=== PATIENT | male | born 1950 | race Caucasian/White ===

== ENCOUNTER 2016-12-27 01:33 | Inpatient (IN) | payer OTHER, MEDICARE, MEDICAID ==
[2016-12-27] VITALS (13 sets, daily range): BP systolic 116–137; BP diastolic 56–97; PULSE 88–124; RESP 18–30; TEMP 97.6–98.5; O2SAT 92–99
[~2016-12-27] VITALS: Ht 185.4 cm; Wt 91.2 kg
[~2016-12-27 01:33] MED LIST: ALPR0.5T3 PO; ASPI81TA82 PO; BP MED; DILT31TA PO; PRAD150C PO
[2016-12-27] MEDS ORDERED: MORPHINE SULFATE 4 MG/ML INJ IV PUSH ONE (02:15)
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
[2016-12-27] MEDS ORDERED: PRAD150C PO (03:00)
[2016-12-27] MEDS ORDERED: AMIO0.1T PO (03:00)
[2016-12-27] MEDS ORDERED: PRIM50TA5 PO (03:00)
[2016-12-27] MEDS ORDERED: HYDR-3133 PO (03:00)
[2016-12-27] MEDS ORDERED: AMBI5TAB PO (03:00)
[2016-12-27] MEDS ORDERED: GABA100C4 PO (03:00)
[2016-12-27] MEDS ORDERED: ALPR0.5T3 PO (03:00)
[2016-12-27] MEDS ORDERED: CHLORHEXIDINE GLUCONATE 2 % 1 PACK (2 CLOTHS) TOP PRN (03:15)
[2016-12-27] MEDS ORDERED: SODIUM CHLORIDE 0.9% FLUSH 10 ML FLUSH IV FLUSH PRN (03:15)
[2016-12-27] MEDS ORDERED: MISCELLANEOUS NURSING INFORMATION XX SCH (03:15)
[2016-12-27] MEDS ORDERED: MAGNESIUM HYDROXIDE SUSP 30 ML CUP PO PRN (03:15)
[2016-12-27] MEDS ORDERED: ENALAPRILAT 1.25 MG/ML VIAL IV PUSH PRN (03:15)
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
[2016-12-27] MEDS: SODIUM CHLOR 0.9% 1000 ML INJ 1,000 ML IV SCH ×2 (03:55→13:02)
[2016-12-27] MEDS: CHLORHEXIDINE GLUCONATE 2 % 1 PACK (2 CLOTHS) TOP SCH (04:00)
[2016-12-27] MEDS: MORPHINE SULFATE 4 MG/ML INJ IV PUSH PRN ×5 (05:10→19:14)
[2016-12-27] MEDS: PANTOPRAZOLE SODIUM 40 MG VIAL IVP SCH (06:00)
[2016-12-27 06:47] LABS: ANION GAP 10 MEQ/L (5-15); AST (GOT) 29 U/L (15-37); BICARBONATE 25.9 MEQ/L (21.0-32.0); BLOOD UREA NITROGEN 12 MG/DL (7-18); CHLORIDE 96 MEQ/L (98-107); GLOMERULAR FILTRATION RATE 86 ML/MIN (>89); POTASSIUM 3.5 MEQ/L (3.5-5.1); SODIUM (NA) 132 MEQ/L (136-145)
[2016-12-27 06:49] LABS: ALT (GPT) 32 U/L (12-78)
[2016-12-27 06:51] LABS: ALKALINE PHOSPHATASE 85 U/L (45-117); TOTAL BILIRUBIN ADULT 0.8 MG/DL (0.2-1.0)
[2016-12-27 07:10] LABS: AUTOMATED NEUTROPHIL # 7.5 TH/MM3 (1.8-7.7); BASOPHIL % 0.1 % (0.0-2.0); EOSINOPHIL % 0.1 % (0.0-4.0); HEMATOCRIT 38.6 % (39.0-51.0); HEMO FLAGS DIFF FINAL; LYMPH % 14.5 % (9.0-44.0); LYMPHOCYTE # 1.5 TH/MM3 (1.0-4.8); MEAN CELL VOLUME 93.9 FL (80.0-100.0); MEAN CORPUSCULAR HEMOGLOBIN 32.1 PG (27.0-34.0); MEAN CORPUSCULAR HGB CONC 34.2 % (32.0-36.0); MONO % 10.1 % (0.0-8.0); NEUT % 75.2 % (16.0-70.0); PLATELET COUNT 162 TH/MM3 (150-450); RED BLOOD COUNT 4.11 MIL/MM3 (4.50-5.90); RED CELL DISTRIBUTION WIDTH 13.5 % (11.6-17.2)
[2016-12-27] MEDS: DOCUSATE SODIUM 100 MG CAP PO SCH ×2 (08:36→20:27)
[2016-12-27] MEDS: ACETAMINOPHEN/HYDROcodone 325 MG/5 MG TAB PO PRN ×4 (08:45→20:28)
[2016-12-27] MEDS: METHOCARBAMOL 500 MG TAB PO SCH ×2 (10:00→17:46)
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
[2016-12-27] MEDS: LIDOCAINE HCL 5% PATCH T-DERMAL SCH (10:10)
[2016-12-27] MEDS ORDERED: AMIODARONE 200 MG TAB PO SCH (10:30)
[2016-12-27] MEDS ORDERED: PILL SPLITTER OTHER PRN (10:45)
[2016-12-27] MEDS: METOPROLOL TARTRATE 25 MG TAB PO SCH ×2 (12:00→20:26)
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
--- NOTE | 2016-12-27 12:33 | EKG ---
Date Performed: 12/27/2016 Time Performed: 01:40:14 PTAGE: 66 years EKG: ATRIAL FIBRILLATION WITH RAPID VENTRICULAR RESPONSE MARKED LEFT AXIS DEVIATION LEFT BUNDLE BRANCH BLOCK ABNORMAL ECG PREVIOUS TRACING : 09/12/2010 17.54 Since previous tracing, the left bundle branch block and le ft axis deviation are new. DOCTOR: Gianluca Coffey Interpretating Date/Time 12/27/2016 12:32:10
[2016-12-27] MEDS: GABAPENTIN 100 MG CAP PO SCH ×2 (13:00→17:46)
[2016-12-27] MEDS: PRIMIDONE 50 MG TAB PO SCH ×3 (13:00→20:26)
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
[2016-12-27] MEDS: REMOVE OLD LIDOCAINE PATCH T-DERMAL SCH (20:27)
[2016-12-27] MEDS: AMIODARONE 200 MG TAB PO SCH (20:59)
[2016-12-27] MEDS ORDERED: ICU - CALL ORDERING PHYSICIAN PRN (21:45)
[2016-12-27] MEDS ORDERED: ICU - POTASSIUM PHOSPHATE MONOBASIC 500 MG TAB PO PRN (21:45)
[2016-12-27] MEDS ORDERED: ICU - POTASSIUM PHOSPHATE 30 MMOL/NS 250 ML IV PRN ×2 (21:45)
[2016-12-27] MEDS ORDERED: ICU - MAGNESIUM OXIDE 400 MG TAB PO PRN (21:45)
[2016-12-27] MEDS ORDERED: ICU - D/C ICU ELECTROLYTE ORDERS PRN (21:45)
[2016-12-27] MEDS ORDERED: ICU - MAGNESIUM SULFATE 2 GM/NS 100 ML IV PRN ×2 (21:45)
[2016-12-27] MEDS ORDERED: POTASSIUM CHLORIDE 25 MEQ EFFERVESCENT TAB PO PRN (21:45)
[2016-12-27] MEDS ORDERED: ICU - POTASSIUM CHLORIDE/AQUEOUS SOLN 40 MEQ/100 ML IVPB IV PRN (21:45)
[2016-12-27] MEDS ORDERED: ICU - MAGNESIUM SULFATE 4 GM/NS 100 ML IV PRN ×2 (21:45)
[2016-12-27] MEDS ORDERED: ICU - SODIUM PHOSPHATE 30 MMOL/NS 250 ML IV PRN ×2 (21:45)
[2016-12-27] MEDS: ICU - POTASSIUM CHLORIDE/AQUEOUS SOLN 20 MEQ/100 ML IVPB IV PRN (21:51)
[2016-12-27] MEDS: ALPRAZolam 0.5 MG TAB PO PRN (21:55)
[2016-12-28] VITALS (15 sets, daily range): BP systolic 122–138; BP diastolic 77–89; PULSE 80–119; RESP 22–33; TEMP 97.9–99.2; O2SAT 90–96
[2016-12-28] MEDS: ICU - POTASSIUM CHLORIDE/AQUEOUS SOLN 20 MEQ/100 ML IVPB IV PRN (00:04)
[2016-12-28] MEDS: MORPHINE SULFATE 4 MG/ML INJ IV PUSH PRN ×4 (00:05→14:19)
[2016-12-28] MEDS: METHOCARBAMOL 500 MG TAB PO SCH ×3 (02:15→17:26)
[2016-12-28] MEDS: CHLORHEXIDINE GLUCONATE 2 % 1 PACK (2 CLOTHS) TOP SCH (03:33)
--- NOTE | 2016-12-28 03:57 | RADRPT ---
EXAM DATE/TIME: 12/28/2016 03:11 [facility] COMPARISON: CHEST SINGLE AP, December 27, 2016, 3:06. INDICATIONS : Chest pain. MEDICAL HISTORY : None. SURGICAL HISTORY : None. ENCOUNTER: Initial ACUITY: 2 days PAIN SCORE: 8/10 LOCATION: Right chest FINDINGS: The cardiac silhouette is enlarged in transverse diameter. The lungs are free of acute parenchymal op acity. No effusions are identified. The aortic knob is prominent with tortuosity of the descending th oracic aorta. CONCLUSION: 1. Cardiomegaly. No acute pulmonary disease. Viktor Dewitt MD on December 28, 2016 at 3:55 Board Certified Radiologist. This report was verified electronically.
[2016-12-28 03:59] LABS: AUTOMATED NEUTROPHIL # 7.9 TH/MM3 (1.8-7.7); BASOPHIL % 0.2 % (0.0-2.0); EOSINOPHIL # 0.2 TH/MM3 (0-0.4); EOSINOPHIL % 1.5 % (0.0-4.0); HEMO FLAGS DIFF FINAL; LYMPH % 16.1 % (9.0-44.0); LYMPHOCYTE # 1.8 TH/MM3 (1.0-4.8); MEAN CELL VOLUME 95.1 FL (80.0-100.0); MEAN CORPUSCULAR HEMOGLOBIN 32.8 PG (27.0-34.0); MEAN CORPUSCULAR HGB CONC 34.5 % (32.0-36.0); MONO % 9.9 % (0.0-8.0); NEUT % 72.3 % (16.0-70.0); PLATELET COUNT 163 TH/MM3 (150-450); RED BLOOD COUNT 4.31 MIL/MM3 (4.50-5.90); RED CELL DISTRIBUTION WIDTH 13.5 % (11.6-17.2); WHITE BLOOD COUNT 10.9 TH/MM3 (4.0-11.0)
[2016-12-28 04:22] LABS: ALT (GPT) 32 U/L (12-78); ANION GAP 6 MEQ/L (5-15); AST (GOT) 22 U/L (15-37); BICARBONATE 29.5 MEQ/L (21.0-32.0); BLOOD UREA NITROGEN 9 MG/DL (7-18); CHLORIDE 97 MEQ/L (98-107); GLOMERULAR FILTRATION RATE 94 ML/MIN (>89); MAGNESIUM 1.9 MG/DL (1.5-2.5); POTASSIUM 4.1 MEQ/L (3.5-5.1); SODIUM (NA) 132 MEQ/L (136-145)
[2016-12-28 04:24] LABS: ALKALINE PHOSPHATASE 87 U/L (45-117)
[2016-12-28] MEDS: ACETAMINOPHEN/HYDROcodone 325 MG/5 MG TAB PO PRN ×3 (04:33→20:07)
[2016-12-28] MEDS: PANTOPRAZOLE SODIUM 40 MG VIAL IVP SCH (05:34)
[2016-12-28] MEDS: LACTULOSE SYRUP 20 GM/30 ML CUP PO SCH (09:11)
[2016-12-28] MEDS: GABAPENTIN 100 MG CAP PO SCH ×3 (09:12→17:26)
[2016-12-28] MEDS: METOPROLOL TARTRATE 25 MG TAB PO SCH ×2 (09:12→20:07)
[2016-12-28] MEDS: DOCUSATE SODIUM 100 MG CAP PO SCH ×2 (09:12→20:07)
[2016-12-28] MEDS: LIDOCAINE HCL 5% PATCH T-DERMAL SCH (09:12)
[2016-12-28] MEDS: AMIODARONE 200 MG TAB PO SCH ×2 (09:12→20:07)
[2016-12-28] MEDS: PRIMIDONE 50 MG TAB PO SCH ×4 (09:12→20:06)
[2016-12-28] MEDS ORDERED: PNEUMOCOCCAL POLYVALENT INJ 25 MCG/0.5 ML SYR IM ONE (10:00)
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
--- NOTE | 2016-12-28 10:47 | PD.CARD.PN ---
Subjective Subjective Remarks no cv complaints Afib with RVR/aberrancy overnight asymptomatic Objective Medications Current Medications Medications (Trade) Dose Ordered Sig/Shelbie Route Start Time Stop Time Status Last Admin (NS Flush) 2 ml UNSCH PRN IV FLUSH 12/27/16 03:15 (Morphine Inj) 2 mg Q3H PRN IV PUSH 12/27/16 03:15 12/28/16 03:26 ([place] 5-325 Mg) 1 tab Q4H PRN PO 12/27/16 03:15 12/27/16 08:45 ([place] 5-325 Mg) 2 tab Q4H PRN PO 12/27/16 03:15 12/28/16 04:33 (Vasotec Inj) 1.25 mg Q8H PRN IV PUSH 12/27/16 03:15 (Zofran Inj) 4 mg Q6H PRN IV PUSH 12/27/16 03:15 (Protonix Inj) 40 mg Q24H IVP 12/27/16 06:00 12/28/16 05:34 (Colace) 100 mg BID PO 12/27/16 09:00 12/28/16 09:12 (Milk Of Magnesia Liq) 30 ml Q6H PRN PO 12/27/16 03:15 Miscellaneous Information 1 Q361D XX 12/27/16 03:15 (Chlorhexidine 2% Cloth) 3 pack Taper DAILY@04 TOP 12/27/16 04:00 12/23/17 03:59 (Chlorhexidine 2% Cloth) 3 pack UNSCH PRN TOP 12/27/16 03:15 (Robaxin) 500 mg Q8H PO 12/27/16 10:00 12/28/16 09:12 (Lidoderm 5% Patch.12 Hr) 1 patch DAILY T-DERMAL 12/27/16 09:15 12/28/16 09:12 (Lactulose Liq) 30 ml DAILY PO 12/28/16 09:00 12/28/16 09:11 Miscellaneous Information 1 Q24H T-DERMAL 12/27/16 21:00 12/27/16 20:27 (Xanax) 0.5 mg Q8H PRN PO 12/27/16 10:30 12/27/16 21:55 (Neurontin) 100 mg TID PO 12/27/16 13:00 12/28/16 09:12 (Mysoline) 100 mg QID PO 12/27/16 13:00 12/28/16 09:12 (Ambien) 5 mg HS PRN PO 12/27/16 21:00 (Pill Splitter) 1 ea UNSCH PRN OTHER 12/27/16 10:45 (Cordarone) 200 mg BID PO 12/27/16 21:00 12/28/16 09:12 (Lopressor) 25 mg Q12HR PO 12/27/16 12:00 12/28/16 09:12 Miscellaneous Information D/C ICU ELECTROLYTE ORDERS... UNSCH PRN .XX 12/27/16 21:45 Miscellaneous Information ICU - CALL ORDERING PHYSIC... UNSCH PRN .XX 12/27/16 21:45 Potassium Chloride 100 ml @ 25 mls/hr UNSCH PRN IV 12/27/16 21:45 (K-Lyte Cl Eff) 50 meq UNSCH PRN PO 12/27/16 21:45 Potassium Chloride 100 ml @ 50 mls/hr UNSCH PRN IV 12/27/16 21:45 12/28/16 00:04 Magnesium Sulfate 4 gm/Sodium Chloride 108 ml @ 54 mls/hr UNSCH PRN IV 12/27/16 21:45 Magnesium Sulfate 2 gm/Sodium Chloride 104 ml @ 52 mls/hr UNSCH PRN IV 12/27/16 21:45 (Mag-Ox) 800 mg UNSCH PRN PO 12/27/16 21:45 Sodium Phosphate 30 mmol/Sodium Chloride 260 ml @ 43.333 mls/ hr UNSCH PRN IV 12/27/16 21:45 (K-Phos) 2,000 mg UNSCH PRN PO 12/27/16 21:45 Potassium Phosphate 30 mmol/ Sodium Chloride 260 ml @ 43.333 mls/ hr UNSCH PRN IV 12/27/16 21:45 Vital Signs / I&O Vital Signs Date Time Temp Pulse Resp B/P (MAP) Pulse Ox O2 Delivery O2 Flow Rate FiO2 12/28/16 10:00 101 12/28/16 08:34 91 Nasal Cannula 3.00 12/28/16 08:00 98.3 101 28 127/81 (96) 91 12/28/16 08:00 101 12/28/16 07:00 92 Nasal Cannula 2.00 12/28/16 06:00 89 12/28/16 04:00 98.3 96 33 130/87 (101) 96 12/28/16 04:00 96 12/28/16 03:41 90 Nasal Cannula 3.00 12/28/16 02:00 84 12/28/16 00:00 97.9 80 30 122/77 (92) 96 12/28/16 00:00 80 12/27/16 22:00 88 12/27/16 20:00 98.5 96 21 116/56 (76) 98 12/27/16 20:00 96 12/27/16 19:00 93 Nasal Cannula 2.00 12/27/16 18:00 92 12/27/16 17:30 21 12/27/16 16:00 92 12/27/16 16:00 97.6 90 24 122/82 (95) 92 12/27/16 14:00 93 12/27/16 12:00 118 12/27/16 12:00 98.4 118 30 119/87 (98) 93 I/O 12/27/16 12/27/16 12/27/16 12/28/16 12/28/16 12/28/16 07:00 15:00 23:00 07:00 15:00 23:00 Intake Total 1973 ml 920 ml Output Total 0 ml 1100 ml 1400 ml Balance 0 ml 873 ml -480 ml Intake Oral 1200 ml 720 ml IV Total 773 ml 200 ml Output Urine Total 0 ml 1100 ml 1400 ml # Bowel Movements 0 0 Physical Exam GENERAL: Well-nourished, well-developed patient. SKIN: Warm and dry. HEAD: Normocephalic. EYES: No scleral icterus. No injection or drainage. NECK: Supple, trachea midline. No JVD or lymphadenopathy. CARDIOVASCULAR: Irr Irr without murmurs, gallops, or rubs. RESPIRATORY: Breath sounds equal bilaterally. No accessory muscle use. GASTROINTESTINAL: Abdomen soft, non-tender, nondistended. EXTREMITIES: No cyanosis, or edema. NEUROLOGICAL: Awake, alert, and oriented x 3. Non-focal. Laboratory Laboratory Tests Test 12/27/16 22:05 12/28/16 03:31 Magnesium Level 1.9 MG/DL 1.9 MG/DL White Blood Count 10.9 TH/MM3 Red Blood Count 4.31 MIL/MM3 Hemoglobin 14.1 GM/DL Hematocrit 41.0 % Mean Corpuscular Volume 95.1 FL Mean Corpuscular Hemoglobin 32.8 PG Mean Corpuscular Hemoglobin Concent 34.5 % Red Cell Distribution Width 13.5 % Platelet Count 163 TH/MM3 Mean Platelet Volume 6.9 FL Neutrophils (%) (Auto) 72.3 % Lymphocytes (%) (Auto) 16.1 % Monocytes (%) (Auto) 9.9 % Eosinophils (%) (Auto) 1.5 % Basophils (%) (Auto) 0.2 % Neutrophils # (Auto) 7.9 TH/MM3 Lymphocytes # (Auto) 1.8 TH/MM3 Monocytes # (Auto) 1.1 TH/MM3 Eosinophils # (Auto) 0.2 TH/MM3 Basophils # (Auto) 0.0 TH/MM3 CBC Comment DIFF FINAL Differential Comment Blood Urea Nitrogen 9 MG/DL Creatinine 0.82 MG/DL Random Glucose 94 MG/DL Total Protein 7.4 GM/DL Albumin 3.8 GM/DL Calcium Level 8.1 MG/DL Alkaline Phosphatase 87 U/L Aspartate Amino Transf (AST/SGOT) 22 U/L Alanine Aminotransferase (ALT/SGPT) 32 U/L Total Bilirubin 1.0 MG/DL Sodium Level 132 MEQ/L Potassium Level 4.1 MEQ/L Chloride Level 97 MEQ/L Carbon Dioxide Level 29.5 MEQ/L Anion Gap 6 MEQ/L Estimat Glomerular Filtration Rate 94 ML/MIN Imaging Last 24 hours Impressions Chest X-Ray 12/28/16 0600 Signed Impressions: Service Date/Time: Wednesday, December 28, 2016 03:11 - CONCLUSION: 1. Cardiomegaly. No acute pulmonary disease. Viktor Dewitt MD Assessment and Plan Problem List: (1) Atrial fibrillation ICD Codes: I48.91 - Unspecified atrial fibrillation Plan: Plan: Cont Amiodarone to 200mg PO BID Cont Lopressor 25mg PO BID Restart OAC when cleared from Trauma standpoint Telemetry monitoring Will be available on a PRN basis for any questions or concerns (2) Sternal fracture ICD Codes: S22.20XA - Unspecified fracture of sternum, initial encounter for closed fracture Status: Acute (3) Fracture of spinous process of cervical vertebra ICD Codes: S12.9XXA - Fracture of neck, unspecified, initial encounter Status: Acute Problem Qualifiers (1) Atrial fibrillation: Qualified Codes: I48.2 - Chronic atrial fibrillation Reece Galeas MD Dec 28, 2016 10:47
--- NOTE | 2016-12-28 12:59 | EKG ---
Date Performed: 12/28/2016 Time Performed: 05:25:36 PTAGE: 66 years EKG: Marked electrical interference making baseline interpretation difficult, especially in lead s I, II, III. Overall rhythm appears to be atrial fibrillation with one ventricular ectopic beat Nons pecific ST-T change Compared to previous tracing 12/27/2016, which was also a very technically poor t racing, the left bundle branch block appears to have resolved. Although this may be rate related, as leads V4-V6 appear to have a somewhat wider QRS complex. Recommend repeat tracing of better quality. Abnormal ECG PREVIOUS TRACING : 12/27/2016 01.40 DOCTOR: Gianluca Coffey Interpretating Date/Time 12/28/2016 12:57:13
--- NOTE | 2016-12-28 15:01 | ECHRPT ---
Indication: ATRIAL FIB/FLUTTER CONCLUSIONS Normal left ventricular size. Mild concentric left ventricular hypertrophy. The left ventricular systolic function is moderately reduced with an estimated ejection fraction in the range of 40-45%. The right ventricle is mildly dilated. The left atrial size is wvymgzyh-bd-qcbyskea dilated. The right atrial size is ejxwpfcd-yy-qiytgdfd dilated. Mild mitral annular calcification. Mild mitral valve regurgitation. Aortic valve sclerosis is present. There is moderate tricuspid regurgitation. The estimated pulmonary arterial pressure is 49.4 mmHg. No pericardial effusion BP: 130 / 87 HR: Rhythm: Atrial fibrillation, Atrial flut ter MEASUREMENTS (Male / Female) Normal Values Technical Quality:Fair 2D ECHO LV Diastolic Diameter PLAX 5.1 cm 4.2 - 5.9 / 3.9 - 5.3 cm LV Systolic Diameter PLAX 4.2 cm IVS Diastolic Thickness 1.0 cm 0.6 - 1.0 / 0.6 - 0.9 cm LVPW Diastolic Thickness 1.0 cm 0.6 - 1.0 / 0.6 - 0.9 cm LV Relative Wall Thickness 0.4 LVOT Diameter 2.0 cm Aortic Root Diameter 3.1 cm LA Systolic Diameter LX 3.8 cm 3.0 - 4.0 / 2.7 - 3.8 cm M-MODE AV Cusp Separation MM 2.0 cm DOPPLER AV Peak Velocity 110.4 cm/s AV Peak Gradient 4.9 mmHg AV Mean Gradient 3.0 mmHg AV Velocity Time Integral 16.4 cm LVOT Peak Velocity 60.4 cm/s LVOT Peak Gradient 1.5 mmHg LVOT Velocity Time Integral 9.1 cm AV Area Cont Eq vti 1.8 cm AV Area Cont Eq pk 1.7 cm Mitral E Point Velocity 79.5 cm/s LV E' Lateral Velocity 7.4 cm/s Mitral E to LV E' Lateral Ratio 10.7 LV E' Septal Velocity 7.1 cm/s Mitral E to LV E' Septal Ratio 11.3 TR Peak Velocity 314.0 cm/s TR Peak Gradient 39.4 mmHg Right Atrial Pressure 10.0 mmHg Pulmonary Artery Systolic Pressu 49.4 mmHg Right Ventricular Systolic Press 49.4 mmHg PV Peak Velocity 42.4 cm/s PV Peak Gradient 0.7 mmHg FINDINGS LEFT VENTRICLE Normal left ventricular size. Mild concentric left ventricular hypertrophy. The left ventricular systolic function is moderately reduced with an estimated ejection fraction in the range of 40-45%. RIGHT VENTRICLE The right ventricle is mildly dilated. LEFT ATRIUM The left atrial size is fcpoglmr-zt-hspsmvuz dilated. RIGHT ATRIUM The right atrial size is ielnybpe-ft-idrespyd dilated. ATRIAL SEPTUM Normal atrial septal thickness without atrial level shunting by limited color doppler interrogation. AORTA The aortic root and proximal ascending aorta are normal in size on limited imaging. MITRAL VALVE Mild mitral annular calcification. Mild mitral valve regurgitation. AORTIC VALVE Aortic valve sclerosis is present. TRICUSPID VALVE There is moderate tricuspid regurgitation. The estimated pulmonary arterial pressure is 49.4 mmHg. PULMONARY VALVE No pulmonary valve regurgitation or stenosis. VESSELS The inferior vena cava is normal in size. PERICARDIUM No pericardial effusion. Reece Galeas MD (Electronically Signed) Final Date:28 December 2016 15:00
[2016-12-28] MEDS ORDERED: IOHEXOL 350 MG/ML 10 ML VIAL (for RAD DIAG) IVCONTRAST ONE (15:10)
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
[2016-12-28] MEDS: ONDANSETRON HCL 4 MG/2 ML VIAL IV PUSH PRN (18:53)
[2016-12-28] MEDS: REMOVE OLD LIDOCAINE PATCH T-DERMAL SCH (20:24)
[2016-12-28] MEDS: ZOLPIDEM TARTRATE 5 MG TAB PO PRN (23:00)
[2016-12-29] VITALS (14 sets, daily range): BP systolic 116–157; BP diastolic 74–93; PULSE 86–116; RESP 15–25; TEMP 98–98.3; O2SAT 91–98
[2016-12-29] MEDS: MORPHINE SULFATE 4 MG/ML INJ IV PUSH PRN (00:16)
[2016-12-29] MEDS: METHOCARBAMOL 500 MG TAB PO SCH ×3 (01:09→18:29)
[2016-12-29] MEDS: CHLORHEXIDINE GLUCONATE 2 % 1 PACK (2 CLOTHS) TOP SCH (03:27)
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
[2016-12-29] MEDS: ACETAMINOPHEN/HYDROcodone 325 MG/5 MG TAB PO PRN ×5 (04:24→23:25)
[2016-12-29] MEDS: PANTOPRAZOLE SODIUM 40 MG VIAL IVP SCH (04:24)
[2016-12-29 05:12] LABS: AUTOMATED NEUTROPHIL # 7.4 TH/MM3 (1.8-7.7); EOSINOPHIL # 0.1 TH/MM3 (0-0.4); EOSINOPHIL % 0.5 % (0.0-4.0); HEMATOCRIT 37.3 % (39.0-51.0); HEMO FLAGS DIFF FINAL; LYMPH % 11.8 % (9.0-44.0); LYMPHOCYTE # 1.2 TH/MM3 (1.0-4.8); MEAN CORPUSCULAR HEMOGLOBIN 32.4 PG (27.0-34.0); MEAN CORPUSCULAR HGB CONC 34.4 % (32.0-36.0); MONO % 11.5 % (0.0-8.0); NEUT % 76.2 % (16.0-70.0); PLATELET COUNT 138 TH/MM3 (150-450); RED BLOOD COUNT 3.97 MIL/MM3 (4.50-5.90); RED CELL DISTRIBUTION WIDTH 13.4 % (11.6-17.2); WHITE BLOOD COUNT 9.8 TH/MM3 (4.0-11.0)
[2016-12-29 05:35] LABS: ALT (GPT) 23 U/L (12-78); ANION GAP 9 MEQ/L (5-15); AST (GOT) 20 U/L (15-37); BICARBONATE 29.5 MEQ/L (21.0-32.0); BLOOD UREA NITROGEN 7 MG/DL (7-18); CHLORIDE 93 MEQ/L (98-107); GLOMERULAR FILTRATION RATE 111 ML/MIN (>89); SODIUM (NA) 131 MEQ/L (136-145)
[2016-12-29 05:37] LABS: ALKALINE PHOSPHATASE 72 U/L (45-117); TOTAL BILIRUBIN ADULT 0.7 MG/DL (0.2-1.0)
[2016-12-29] MEDS: METOPROLOL TARTRATE 25 MG TAB PO SCH ×3 (09:00→21:00)
[2016-12-29] MEDS: DOCUSATE SODIUM 100 MG CAP PO SCH ×2 (09:28→19:55)
[2016-12-29] MEDS: AMIODARONE 200 MG TAB PO SCH ×2 (09:28→19:55)
[2016-12-29] MEDS: LACTULOSE SYRUP 20 GM/30 ML CUP PO SCH (09:28)
[2016-12-29] MEDS: PRIMIDONE 50 MG TAB PO SCH ×4 (09:28→19:53)
[2016-12-29] MEDS: GABAPENTIN 100 MG CAP PO SCH ×3 (09:28→18:30)
[2016-12-29] MEDS: LIDOCAINE HCL 5% PATCH T-DERMAL SCH (09:29)
[2016-12-29] MEDS: ONDANSETRON HCL 4 MG/2 ML VIAL IV PUSH SCH ×2 (09:45→19:55)
[2016-12-29] MEDS: ALPRAZolam 0.5 MG TAB PO PRN (10:38)
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
[2016-12-29] MEDS: APIXABAN 5 MG TABLET PO SCH ×2 (13:22→19:55)
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
[2016-12-29] MEDS ORDERED: NS + KCL 20 MEQ INJ 1,000 ML IV SCH (14:00)
[2016-12-29] MEDS: ONDANSETRON HCL 4 MG/2 ML VIAL IV PUSH PRN (17:00)
[2016-12-29] MEDS: REMOVE OLD LIDOCAINE PATCH T-DERMAL SCH (20:33)
[2016-12-29] MEDS: ZOLPIDEM TARTRATE 5 MG TAB PO PRN (22:08)
[2016-12-30] VITALS (14 sets, daily range): BP systolic 97–135; BP diastolic 79–97; PULSE 98–120; RESP 12–20; TEMP 97.7–98.6; O2SAT 93–98
[2016-12-30] MEDS: METHOCARBAMOL 500 MG TAB PO SCH ×3 (01:14→17:20)
[2016-12-30] MEDS: CHLORHEXIDINE GLUCONATE 2 % 1 PACK (2 CLOTHS) TOP SCH (03:23)
[2016-12-30] MEDS: ALPRAZolam 0.5 MG TAB PO PRN ×2 (03:33→09:43)
[2016-12-30] MEDS: MORPHINE SULFATE 4 MG/ML INJ IV PUSH PRN ×4 (03:45→20:03)
[2016-12-30] MEDS: GABAPENTIN 100 MG CAP PO SCH ×3 (03:58→17:20)
[2016-12-30] MEDS ORDERED: ALPRAZolam 0.5 MG TAB PO PRN ×2 (04:00→16:00)
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
[2016-12-30] MEDS: PANTOPRAZOLE SODIUM 40 MG VIAL IVP SCH (05:18)
[2016-12-30 05:26] LABS: AUTOMATED NEUTROPHIL # 7.9 TH/MM3 (1.8-7.7); BASOPHIL % 0.1 % (0.0-2.0); EOSINOPHIL # 0.1 TH/MM3 (0-0.4); EOSINOPHIL % 0.5 % (0.0-4.0); HEMATOCRIT 36.4 % (39.0-51.0); HEMO FLAGS DIFF FINAL; LYMPH % 9.9 % (9.0-44.0); MEAN CELL VOLUME 93.2 FL (80.0-100.0); MEAN CORPUSCULAR HEMOGLOBIN 32.1 PG (27.0-34.0); MEAN CORPUSCULAR HGB CONC 34.5 % (32.0-36.0); MONO % 12.1 % (0.0-8.0); NEUT % 77.4 % (16.0-70.0); PLATELET COUNT 147 TH/MM3 (150-450); RED CELL DISTRIBUTION WIDTH 13.2 % (11.6-17.2); WHITE BLOOD COUNT 10.2 TH/MM3 (4.0-11.0)
[2016-12-30 05:50] LABS: ALT (GPT) 22 U/L (12-78); ANION GAP 9 MEQ/L (5-15); AST (GOT) 19 U/L (15-37); BICARBONATE 27.2 MEQ/L (21.0-32.0); BLOOD UREA NITROGEN 5 MG/DL (7-18); CHLORIDE 95 MEQ/L (98-107); GLOMERULAR FILTRATION RATE 116 ML/MIN (>89); MAGNESIUM 1.8 MG/DL (1.5-2.5); POTASSIUM 3.6 MEQ/L (3.5-5.1); SODIUM (NA) 131 MEQ/L (136-145)
[2016-12-30 05:52] LABS: ALKALINE PHOSPHATASE 70 U/L (45-117); TOTAL BILIRUBIN ADULT 0.8 MG/DL (0.2-1.0)
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
[2016-12-30] MEDS: METOPROLOL TARTRATE 25 MG TAB PO SCH (09:00)
[2016-12-30] MEDS: DOCUSATE SODIUM 100 MG CAP PO SCH ×3 (09:00→20:18)
[2016-12-30] MEDS: LACTULOSE SYRUP 20 GM/30 ML CUP PO SCH ×2 (09:00→09:52)
[2016-12-30] MEDS: PRIMIDONE 50 MG TAB PO SCH ×5 (09:00→20:18)
[2016-12-30] MEDS: APIXABAN 5 MG TABLET PO SCH ×3 (09:00→20:18)
[2016-12-30] MEDS: LIDOCAINE HCL 5% PATCH T-DERMAL SCH (09:00)
[2016-12-30] MEDS: AMIODARONE 200 MG TAB PO SCH ×2 (09:07→20:04)
[2016-12-30] MEDS: ONDANSETRON HCL 4 MG/2 ML VIAL IV PUSH SCH ×2 (09:07→20:18)
[2016-12-30] MEDS: ACETAMINOPHEN/HYDROcodone 325 MG/5 MG TAB PO PRN ×3 (09:17→20:04)
[2016-12-30] MEDS ORDERED: PADIMATE (CHAPSTICK) 4.5 GM TUBE TOPICAL PRN (11:45)
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
[2016-12-30] MEDS: DILTIAZEM HCL 60 MG TAB PO SCH ×2 (18:38→22:57)
[2016-12-30] MEDS: REMOVE OLD LIDOCAINE PATCH T-DERMAL SCH (20:18)
[2016-12-30] MEDS: ZOLPIDEM TARTRATE 5 MG TAB PO PRN ×2 (21:38→22:57)
[2016-12-30] MEDS: ALPRAZolam 1 MG TAB PO PRN (22:57)
[2016-12-31] VITALS (10 sets, daily range): BP systolic 96–144; BP diastolic 65–94; PULSE 70–108; RESP 12–23; TEMP 98–98.6; O2SAT 92–98
[2016-12-31] MEDS: METHOCARBAMOL 500 MG TAB PO SCH ×2 (03:03→10:00)
[2016-12-31] MEDS: CHLORHEXIDINE GLUCONATE 2 % 1 PACK (2 CLOTHS) TOP SCH (03:03)
[2016-12-31] MEDS: DILTIAZEM HCL 60 MG TAB PO SCH ×3 (05:12→17:32)
[2016-12-31] MEDS: ACETAMINOPHEN/HYDROcodone 325 MG/5 MG TAB PO PRN ×5 (05:13→22:22)
[2016-12-31 05:21] LABS: BASOPHIL % 0.2 % (0.0-2.0); EOSINOPHIL # 0.1 TH/MM3 (0-0.4); EOSINOPHIL % 1.9 % (0.0-4.0); HEMATOCRIT 35.9 % (39.0-51.0); HEMO FLAGS DIFF FINAL; LYMPHOCYTE # 1.4 TH/MM3 (1.0-4.8); MEAN CELL VOLUME 93.5 FL (80.0-100.0); MEAN CORPUSCULAR HEMOGLOBIN 31.7 PG (27.0-34.0); MEAN CORPUSCULAR HGB CONC 33.9 % (32.0-36.0); NEUT % 65.9 % (16.0-70.0); PLATELET COUNT 155 TH/MM3 (150-450); RED BLOOD COUNT 3.84 MIL/MM3 (4.50-5.90); RED CELL DISTRIBUTION WIDTH 13.5 % (11.6-17.2); WHITE BLOOD COUNT 7.5 TH/MM3 (4.0-11.0)
[2016-12-31] MEDS: ALPRAZolam 1 MG TAB PO PRN (05:36)
[2016-12-31] MEDS: MORPHINE SULFATE 4 MG/ML INJ IV PUSH PRN ×2 (05:37→13:02)
[2016-12-31 05:55] LABS: ALT (GPT) 24 U/L (12-78); ANION GAP 8 MEQ/L (5-15); AST (GOT) 17 U/L (15-37); BICARBONATE 29.5 MEQ/L (21.0-32.0); BLOOD UREA NITROGEN 5 MG/DL (7-18); CHLORIDE 96 MEQ/L (98-107); GLOMERULAR FILTRATION RATE 107 ML/MIN (>89); POTASSIUM 3.7 MEQ/L (3.5-5.1); SODIUM (NA) 133 MEQ/L (136-145)
[2016-12-31 05:57] LABS: ALKALINE PHOSPHATASE 72 U/L (45-117); TOTAL BILIRUBIN ADULT 0.6 MG/DL (0.2-1.0)
[2016-12-31] MEDS ORDERED: LORazepam 2 MG TAB PO PRN (07:15)
[2016-12-31] MEDS ORDERED: FLUMAZENIL 0.5 MG/5 ML VIAL IV PUSH PRN (07:15)
[2016-12-31] MEDS ORDERED: LORazepam 1 MG TAB PO PRN (07:15)
[2016-12-31] MEDS ORDERED: LORazepam 2 MG/ML VIAL IV PUSH PRN ×4 (07:15)
[2016-12-31] MEDS: AMIODARONE 200 MG TAB PO SCH (09:00)
[2016-12-31] MEDS: LIDOCAINE HCL 5% PATCH T-DERMAL SCH (09:00)
[2016-12-31] MEDS: PRIMIDONE 50 MG TAB PO SCH ×4 (09:00→20:54)
[2016-12-31] MEDS: FAMOTIDINE 20 MG TAB PO SCH ×2 (09:00→20:54)
[2016-12-31] MEDS: DOCUSATE SODIUM 100 MG CAP PO SCH ×2 (09:00→20:54)
[2016-12-31] MEDS: GABAPENTIN 100 MG CAP PO SCH ×3 (09:00→17:32)
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
[2016-12-31] MEDS: DABIGATRAN ETEXILATE 150 MG CAP PO SCH ×2 (12:17→20:54)
[2016-12-31] MEDS: LACTULOSE SYRUP 20 GM/30 ML CUP PO SCH (16:40)
[2016-12-31] MEDS ORDERED: METHOCARBAMOL 500 MG TAB PO PRN (18:00)
[2016-12-31] MEDS: REMOVE OLD LIDOCAINE PATCH T-DERMAL SCH (21:35)
[2016-12-31] MEDS: ONDANSETRON HCL 4 MG/2 ML VIAL IV PUSH PRN (22:21)
--- NOTE | 2016-12-31 23:02 | HHI.PR ---
Subjective Remarks Feeling better Objective Vital Signs Date Time Temp Pulse Resp B/P (MAP) Pulse Ox O2 Delivery O2 Flow Rate FiO2 12/31/16 19:00 92 Nasal Cannula 4.00 12/31/16 16:00 88 12/31/16 16:00 98.0 88 20 128/83 (98) 97 12/31/16 12:00 87 12/31/16 12:00 98.6 81 14 125/77 (93) 98 12/31/16 10:00 102 12/31/16 09:50 95 Nasal Cannula 3.00 12/31/16 08:00 98.5 97 17 130/75 (93) 92 12/31/16 08:00 97 12/31/16 08:00 97 Nasal Cannula 4.00 12/31/16 06:13 18 12/31/16 06:00 95 12/31/16 05:42 25 12/31/16 04:00 108 12/31/16 04:00 98.5 108 23 144/94 (111) 95 12/31/16 02:00 70 12/31/16 00:00 98.5 88 12 96/66 (76) 96 12/31/16 00:00 88 I/O 12/30/16 12/30/16 12/30/16 12/31/16 12/31/16 12/31/16 07:00 15:00 23:00 07:00 15:00 23:00 Intake Total 800 ml 800 ml 1200 ml 720 ml 1200 ml Balance 800 ml 800 ml 1200 ml 720 ml 1200 ml Intake Oral 800 ml 1200 ml 720 ml 1200 ml IV Total 800 ml # Voids 5 6 4 4 # Bowel Movements 0 0 0 0 Result Diagram: 12/31/16 0505 12/31/16 0505 Imaging Alert, fully oriented Lungs: clear , ventilated Heart: S1,S2 regular Abdomen: soft, no mass Ext: no mass Last Impressions Chest X-Ray 12/30/16 0600 Signed Impressions: Service Date/Time: Friday, December 30, 2016 04:45 - CONCLUSION: Rib fractures are unchanged. Small mild atelectasis in the left lung base. No new infiltrate or mass Jaydon Villagomez MD Chest CT 12/28/16 0000 Signed Impressions: Service Date/Time: Wednesday, December 28, 2016 14:57 - CONCLUSION: 1. Very small bilateral pleural effusions with bibasilar atelectatic changes. 2. Minimal granulomatous disease on the right. 3. Multiple posterior and posterolateral rib fractures in the inferior aspect of the left hemithorax in various stages of healing. Mekhi Hardy MD Carotid Artery Ultrasound 12/27/16 0000 Signed Impressions: Service Date/Time: Thursday, December 27, 2016 19:23 - CONCLUSION: 1. Very mild atherosclerotic disease within the carotid bulbs bilaterally. However, no significant stenosis is identified within either internal carotid artery (less than 50%% stenosis). 2. There is antegrade flow within both vertebral arteries. Edi Yao MD Current Medications Medications (Trade) Dose Ordered Sig/Shelbie Route Start Time Stop Time Status Last Admin (NS Flush) 2 ml UNSCH PRN IV FLUSH 12/27/16 03:15 (Morphine Inj) 2 mg Q3H PRN IV PUSH 12/27/16 03:15 12/31/16 13:02 (Union 5-325 Mg) 1 tab Q4H PRN PO 12/27/16 03:15 12/27/16 08:45 (Union 5-325 Mg) 2 tab Q4H PRN PO 12/27/16 03:15 12/31/16 22:22 (Vasotec Inj) 1.25 mg Q8H PRN IV PUSH 12/27/16 03:15 (Zofran Inj) 4 mg Q6H PRN IV PUSH 12/27/16 03:15 12/31/16 22:21 (Colace) 100 mg BID PO 12/27/16 09:00 12/31/16 20:54 (Milk Of Magnesia Liq) 30 ml Q6H PRN PO 12/27/16 03:15 Miscellaneous Information 1 Q361D XX 12/27/16 03:15 (Chlorhexidine 2% Cloth) 3 pack Taper DAILY@04 TOP 12/27/16 04:00 12/23/17 03:59 (Chlorhexidine 2% Cloth) 3 pack UNSCH PRN TOP 12/27/16 03:15 (Lidoderm 5% Patch.12 Hr) 1 patch DAILY T-DERMAL 12/27/16 09:15 12/31/16 09:00 (Lactulose Liq) 30 ml DAILY PO 12/28/16 09:00 12/31/16 16:40 Miscellaneous Information 1 Q24H T-DERMAL 12/27/16 21:00 12/31/16 21:35 (Neurontin) 100 mg TID PO 12/27/16 13:00 12/31/16 17:32 (Mysoline) 100 mg QID PO 12/27/16 13:00 12/31/16 20:54 (Ambien) 5 mg HS PRN PO 12/27/16 21:00 12/30/16 22:57 (Pill Splitter) 1 ea UNSCH PRN OTHER 12/27/16 10:45 Miscellaneous Information D/C ICU ELECTROLYTE ORDERS... UNSCH PRN .XX 12/27/16 21:45 Miscellaneous Information ICU - CALL ORDERING PHYSIC... UNSCH PRN .XX 12/27/16 21:45 Potassium Chloride 100 ml @ 25 mls/hr UNSCH PRN IV 12/27/16 21:45 (K-Lyte Cl Eff) 50 meq UNSCH PRN PO 12/27/16 21:45 Potassium Chloride 100 ml @ 50 mls/hr UNSCH PRN IV 12/27/16 21:45 12/28/16 00:04 Magnesium Sulfate 4 gm/Sodium Chloride 108 ml @ 54 mls/hr UNSCH PRN IV 12/27/16 21:45 Magnesium Sulfate 2 gm/Sodium Chloride 104 ml @ 52 mls/hr UNSCH PRN IV 12/27/16 21:45 (Mag-Ox) 800 mg UNSCH PRN PO 12/27/16 21:45 Sodium Phosphate 30 mmol/Sodium Chloride 260 ml @ 43.333 mls/ hr UNSCH PRN IV 12/27/16 21:45 (K-Phos) 2,000 mg UNSCH PRN PO 12/27/16 21:45 Potassium Phosphate 30 mmol/ Sodium Chloride 260 ml @ 43.333 mls/ hr UNSCH PRN IV 12/27/16 21:45 (Chapstick) 1 applic UNSCH PRN TOPICAL 12/30/16 11:45 (Xanax) 1 mg Q6H PRN PO 12/30/16 16:30 12/31/16 05:36 (Cordarone) 200 mg DAILY PO 12/31/16 09:00 12/31/16 09:00 (Cardizem) 60 mg Q6HR PO 12/30/16 18:00 12/31/16 17:32 (Pepcid) 20 mg BID PO 12/31/16 09:00 12/31/16 20:54 (Romazicon Inj) 0.2 mg Q1M PRN IV PUSH 12/31/16 07:15 (Ativan) 1 mg Q4H PRN PO 12/31/16 07:15 (Ativan Inj) 1 mg Q4H PRN IV PUSH 12/31/16 07:15 (Ativan) 2 mg Q2H PRN PO 12/31/16 07:15 (Ativan Inj) 2 mg Q2H PRN IV PUSH 12/31/16 07:15 (Ativan Inj) 2 mg Q1H PRN IV PUSH 12/31/16 07:15 (Ativan Inj) 2 mg Q15M PRN IV PUSH 12/31/16 07:15 (Pradaxa) 150 mg BID PO 12/31/16 11:00 12/31/16 20:54 (Robaxin) 500 mg TID PRN PO 12/31/16 18:00 Assessment and Plan Problem List: (1) Atrial fibrillation with RVR ICD Codes: I48.91 - Unspecified atrial fibrillation Plan: Patient doing and feeling better HR control long acting Cardizem will be initiated in AM Case discussed with patient Sonya Isabel MD Dec 31, 2016 23:02
[2017-01-01] VITALS (14 sets, daily range): BP systolic 140–166; BP diastolic 78–99; PULSE 73–111; RESP 16–19; TEMP 97.6–98.2; O2SAT 94–98
[2017-01-01] MEDS: ZOLPIDEM TARTRATE 5 MG TAB PO PRN (00:29)
[2017-01-01] MEDS: MORPHINE SULFATE 4 MG/ML INJ IV PUSH PRN (00:29)
[2017-01-01] MEDS: DILTIAZEM HCL 60 MG TAB PO SCH ×2 (00:29→05:18)
[2017-01-01] MEDS: CHLORHEXIDINE GLUCONATE 2 % 1 PACK (2 CLOTHS) TOP SCH (03:53)
[2017-01-01] MEDS: ACETAMINOPHEN/HYDROcodone 325 MG/5 MG TAB PO PRN ×4 (03:54→20:25)
[2017-01-01 05:50] LABS: AUTOMATED NEUTROPHIL # 4.1 TH/MM3 (1.8-7.7); BASOPHIL % 0.4 % (0.0-2.0); EOSINOPHIL # 0.2 TH/MM3 (0-0.4); EOSINOPHIL % 2.5 % (0.0-4.0); HEMO FLAGS DIFF FINAL; LYMPH % 22.8 % (9.0-44.0); LYMPHOCYTE # 1.6 TH/MM3 (1.0-4.8); MEAN CELL VOLUME 93.6 FL (80.0-100.0); MEAN CORPUSCULAR HEMOGLOBIN 32.2 PG (27.0-34.0); MEAN CORPUSCULAR HGB CONC 34.4 % (32.0-36.0); MONO % 14.6 % (0.0-8.0); NEUT % 59.7 % (16.0-70.0); PLATELET COUNT 180 TH/MM3 (150-450); RED BLOOD COUNT 3.96 MIL/MM3 (4.50-5.90); RED CELL DISTRIBUTION WIDTH 13.6 % (11.6-17.2); WHITE BLOOD COUNT 6.9 TH/MM3 (4.0-11.0)
[2017-01-01 06:18] LABS: BICARBONATE 29.5 MEQ/L (21.0-32.0); POTASSIUM 3.2 MEQ/L (3.5-5.1)
[2017-01-01] MEDS: GABAPENTIN 100 MG CAP PO SCH ×3 (08:59→17:23)
[2017-01-01] MEDS: DOCUSATE SODIUM 100 MG CAP PO SCH ×2 (09:00→20:25)
[2017-01-01] MEDS ORDERED: DILTIAZEM-CD 240 MG CAP ER PO SCH (09:00)
[2017-01-01] MEDS: ALPRAZolam 1 MG TAB PO PRN ×2 (09:03→22:46)
[2017-01-01] MEDS: FAMOTIDINE 20 MG TAB PO SCH ×2 (09:03→20:25)
[2017-01-01] MEDS: DABIGATRAN ETEXILATE 150 MG CAP PO SCH ×2 (09:03→20:25)
[2017-01-01] MEDS: PRIMIDONE 50 MG TAB PO SCH ×4 (09:03→20:24)
[2017-01-01] MEDS: AMIODARONE 200 MG TAB PO SCH (09:04)
[2017-01-01] MEDS: LIDOCAINE HCL 5% PATCH T-DERMAL SCH (09:06)
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
[2017-01-01] MEDS ORDERED: DIGOXIN 0.5 MG/2 ML VIAL IV PUSH ONE (09:30)
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
[2017-01-01] MEDS: REMOVE OLD LIDOCAINE PATCH T-DERMAL SCH (20:42)
[2017-01-01] MEDS: ONDANSETRON HCL 4 MG/2 ML VIAL IV PUSH PRN (22:46)
[2017-01-02] VITALS (9 sets, daily range): BP systolic 153–182; BP diastolic 84–107; PULSE 80–116; RESP 16–20; TEMP 97.9–98.6; O2SAT 93–96
[2017-01-02] MEDS: CHLORHEXIDINE GLUCONATE 2 % 1 PACK (2 CLOTHS) TOP SCH (04:00)
[2017-01-02 06:03] LABS: POTASSIUM 3.7 MEQ/L (3.5-5.1)
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
[2017-01-02] MEDS ORDERED: AMIO200T PO (08:24)
[2017-01-02] MEDS ORDERED: CARD180C5 PO (08:24)
[2017-01-02] MEDS ORDERED: HYDR-3516 PO (08:24)
--- NOTE | 2017-01-02 08:26 | HHI.DCPOC ---
Discharge Care Plan Diagnosis: (1) Rib fractures (2) Atrial fibrillation with RVR (3) Hyponatremia (4) Fracture of spinous process of cervical vertebra (5) Hypokalemia Goals to Promote Your Health * To prevent worsening of your condition and complications * To maintain your health at the optimal level Directions to Meet Your Goals Take your medications as prescribed Follow your dietary instruction Follow activity as directed Keep your appointments as scheduled Take your immunizations and boosters as scheduled If your symptoms worsen call your PCP, if no PCP go to Urgent Care Center or Emergency Room Smoking is Dangerous to Your Health. Avoid second hand smoke Call the 24-hour hour crisis hotline for domestic abuse at Marco Bonner MD Jan 02, 2017 08:26
[2017-01-02] MEDS ORDERED: DILTIAZEM-CD 180 MG CAP ER PO SCH (09:00)
[2017-01-02] MEDS: DOCUSATE SODIUM 100 MG CAP PO SCH (09:07)
[2017-01-02] MEDS: FAMOTIDINE 20 MG TAB PO SCH (09:07)
[2017-01-02] MEDS: GABAPENTIN 100 MG CAP PO SCH ×3 (09:07→16:28)
[2017-01-02] MEDS: AMIODARONE 200 MG TAB PO SCH (09:07)
[2017-01-02] MEDS: LIDOCAINE HCL 5% PATCH T-DERMAL SCH (09:08)
[2017-01-02] MEDS: PRIMIDONE 50 MG TAB PO SCH ×3 (09:08→16:29)
[2017-01-02] MEDS: LACTULOSE SYRUP 20 GM/30 ML CUP PO SCH (09:08)
[2017-01-02] MEDS: DABIGATRAN ETEXILATE 150 MG CAP PO SCH (09:08)
[2017-01-02] MEDS: ACETAMINOPHEN/HYDROcodone 325 MG/5 MG TAB PO PRN ×2 (09:16→16:28)
[2017-01-02] MEDS: MORPHINE SULFATE 4 MG/ML INJ IV PUSH PRN (11:35)
[2017-01-02] MEDS: ALPRAZolam 1 MG TAB PO PRN (11:51)
[2017-01-02] MEDS ORDERED: DIGO0.12 PO (15:34)
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
== END 2017-01-02 17:30 | disposition home or self-care (01) | DRG 184 ==
LOC: NEPC 01:33 → NEDA 02:48 → N03A 05:19
PROVIDERS: ADMIT Family Medicine; ATTEND Family Medicine
DX: S22.20XA Unspecified fracture of sternum, initial encounter for closed fracture (principal); S12.600A Unspecified displaced fracture of seventh cervical vertebra, initial encounter for closed fracture; V43.52XA Car driver injured in collision with other type car in traffic accident, initial encounter; Y92.410 Unspecified street and highway as the place of occurrence of the external cause; I48.91 Unspecified atrial fibrillation; E87.1 Hypo-osmolality and hyponatremia; I10 Essential (primary) hypertension; E87.6 Hypokalemia; G25.0 Essential tremor; F41.9 Anxiety disorder, unspecified; Z86.73 Personal history of transient ischemic attack (TIA), and cerebral infarction without residual deficits; Z79.02 Long term (current) use of antithrombotics/antiplatelets; Z79.82 Long term (current) use of aspirin; Z87.891 Personal history of nicotine dependence
CPT/HCPCS: 71010; 71260; 80048; 80053; 83735; 85025; 87641; 93005; 93306; 93880; 94150; 94620; 94640; 94667; 94668; C9113; J1160; J2270; J2405; J3480; J7030; L0150; Q9967

== ENCOUNTER 2017-01-26 18:15 | Emergency (ER) | payer MEDICARE, OTHER ==
[~2017-01-26 18:15] MED LIST changes: +AMBI5TAB PO; +AMIO200T PO; -ASPI81TA82 PO; -BP MED; +CARD180C5 PO; +DIGO0.12 PO; -DILT31TA PO; +GABA100C4 PO; +HYDR-3516 PO; +PRIM50TA5 PO
[2017-01-26 18:17] VITALS: BP 140/91; PULSE 95; RESP 16; TEMP 98.7; O2SAT 98
--- NOTE | 2017-01-26 18:56 | RADRPT ---
EXAM DATE/TIME: 01/26/2017 18:48 [facility] COMPARISON: No previous studies available for comparison. INDICATIONS : Patient fell and hit head 1 day ago, complains of head and neck pain today. RADIATION DOSE: 36.57 CTDIvol (mGy) MEDICAL HISTORY : Cardiovascular disease. Hypertension. SURGICAL HISTORY : None. ENCOUNTER: Initial ACUITY: 2 days PAIN SCALE: 9/10 LOCATION: cranial TECHNIQUE: Multiple contiguous axial images were obtained of the head. Using automated exposure control and adj ustment of the mA and/or kV according to patient size, radiation dose was kept as low as reasonably a chievable to obtain optimal diagnostic quality images. DICOM format image data is available electro nically for review and comparison. FINDINGS: CEREBRUM: The ventricles are normal for age. No evidence of midline shift, mass lesion, hemorrhage or acute in farction. No extra-axial fluid collections are seen. POSTERIOR FOSSA: The cerebellum and brainstem are intact. The 4th ventricle is midline. The cerebellopontine angle i s unremarkable. EXTRACRANIAL: The visualized portion of the orbits is intact. SKULL: The calvaria is intact. No evidence of skull fracture. CONCLUSION: Normal examination for a patient of this age. Christopher Hooker MD on January 26, 2017 at 18:53 Board Certified Radiologist. This report was verified electronically.
--- NOTE | 2017-01-26 19:17 | RADRPT ---
EXAM DATE/TIME: 01/26/2017 18:48 [facility] COMPARISON: No previous studies available for comparison. INDICATIONS : Patient fell and hit head 1 day ago, complains of head and neck pain today RADIATION DOSE: 21.58 CTDIvol (mGy) MEDICAL HISTORY : Cardiovascular disease. Hypertension. SURGICAL HISTORY : None. ENCOUNTER: Initial ACUITY: 1 day PAIN SCALE: 9/10 LOCATION: neck TECHNIQUE: Volumetric scanning of the cervical spine was performed. Multiplanar reconstructions in the sagittal, coronal and oblique axial planes were performed. Using automated exposure control and adjustment o f the mA and/or kV according to patient size, radiation dose was kept as low as reasonably achievable to obtain optimal diagnostic quality images. DICOM format image data is available electronically f or review and comparison. FINDINGS: No acute fracture. Minimal degenerative retrolisthesis of C5 on C6. Moderate degenerative disc diseas e. No canal stenosis. No prevertebral soft tissue swelling. CONCLUSION: 1. No acute findings. Moderate degenerative disc disease. Christopher Hooker MD on January 26, 2017 at 19:13 Board Certified Radiologist. This report was verified electronically.
--- NOTE | 2017-01-26 19:31 | RADRPT ---
EXAM DATE/TIME: 01/26/2017 19:01 [facility] COMPARISON: No previous studies available for comparison. INDICATIONS : Left anterior rib pain, fell today MEDICAL HISTORY : Hypertension. Cardiovascular disease. Previous rib fractures SURGICAL HISTORY : None. ENCOUNTER: Initial ACUITY: 2 days PAIN SCORE: 8/10 LOCATION: Left chest FINDINGS: PA and lateral views of the chest demonstrate the lungs to be symmetrically aerated without evidence of mass, infiltrate or effusion. The cardiomediastinal contours are unremarkable. Healing left-sided rib fractures noted. CONCLUSION: 1. No active disease. Christopher Hooker MD on January 26, 2017 at 19:27 Board Certified Radiologist. This report was verified electronically.
[2017-01-26 19:50] VITALS: BP 118/78; PULSE 92; RESP 18; O2SAT 97
--- NOTE | 2017-01-26 20:12 | PD ---
HPI Chief Complaint: Fall Time Seen by Provider: 19:47 Travel History International Travel<30 days: No Contact w/Intl Traveler<30days: No Traveled to known affect area: No History of Present Illness HPI 66-year-old male presents to emergency department after fall that occurred 2 days ago. Patient states that he does not remember how he fell and has had multiple episodes of this before. Patient came in today because he felt like he was having a anxiety attack. Currently patient does not know why he falls except he is known to have low blood pressure and recurrent atrial fibrillation despite an ablation previously. Patient follows primary care and cardiology and alledgedly not given him a definitive diagnosis as to why he falls or passes out. States he is due for another cardiac ablation March 02. Currently patient complains of left rib pain and neck pain. Says that she was in the hospital approximately 1 month ago and they told him he had a fractured neck and had similar pain in his left chest because of a rib fracture. PFSH Past Medical History Arthritis: Yes Atrial Fibrillation: Yes Anxiety: Yes Depression: Yes Heart Rhythm Problems: Yes Cancer: No Cardiovascular Problems: Yes Cerebrovascular Accident: Yes Diminished Hearing: No Endocrine: No Gastrointestinal Disorders: Yes Genitourinary: No Hypertension: Yes Immune Disorder: No Musculoskeletal: Yes Neurologic: Yes Psychiatric: Yes Reproductive: No Respiratory: No Immunizations Current: Yes Tetanus Vaccination: > 5 Years Influenza Vaccination: Yes Past Surgical History Oral Surgery: Yes (tonsilectomy) Tonsillectomy: Yes Other Surgery: Yes (ABLATION 07/2016) Social History Alcohol Use: Yes (OCCASIONALLY) Tobacco Use: No Substance Use: No Allergies-Medications (Allergen,Severity, Reaction): Coded Allergies: gluten (Verified Allergy, Severe, 01/26/17) FACIAL SWELLING Reported Meds & Prescriptions Reported Meds & Active Scripts Active Robaxin (Methocarbamol) 500 Mg Tab 500 Mg PO TID 3 Days Take 1/2 to 1 tab up to 3 times daily for muscle spasms. Only use them while you are home. Digoxin 0.125 Mg Tab 0.125 Mg PO DAILY Hydrocodone-Acetamin 5-325 mg (Hydrocodone/Acetaminophen) 5 Mg-325 Mg Tablet 1 Tab PO Q4H PRN Cardizem CD 24 HR (Diltiazem CD 24 HR) 180 Mg Caper 360 Mg PO DAILY Amiodarone (Amiodarone HCl) 200 Mg Tab 200 Mg PO DAILY Reported Gabapentin 100 Mg Cap 100 Mg PO TID Primidone 50 Mg Tab 100 Mg PO QID Ambien (Zolpidem Tartrate) 5 Mg Tab 5 Mg PO HS PRN Alprazolam 0.5 Mg Tab 0.5 Mg PO Q8H PRN Pradaxa (Dabigatran) 150 Mg Cap 150 Mg PO BID Review of Systems Except as stated in HPI: all other systems reviewed are Neg Physical Exam Narrative GENERAL: Well developed well-nourished in mild distress SKIN: Focused skin assessment warm/dry. HEAD: Atraumatic. Normocephalic. EYES: Pupils equal and round. No scleral icterus. No injection or drainage. ENT: No nasal bleeding or discharge. Mucous membranes pink and moist. NECK: Trachea midline. No JVD. Obvious muscle spasms left SCM greater than right. no midline TTP CARDIOVASCULAR: Regular rate and rhythm. No murmur appreciated. RESPIRATORY: No accessory muscle use. Clear to auscultation. Breath sounds equal bilaterally. GASTROINTESTINAL: Abdomen soft, non-tender, nondistended. Hepatic and splenic margins not palpable. Mild TTP over sternum without ecchymosis or deformities MUSCULOSKELETAL: No obvious deformities. No clubbing. No cyanosis. No edema. NEUROLOGICAL: Awake and alert. No obvious cranial nerve deficits. Motor grossly within normal limits. Normal speech. PSYCHIATRIC: Appropriate mood and affect; insight and judgment normal. Data Data Last Documented VS Vital Signs Date Time Temp Pulse Resp B/P (MAP) Pulse Ox O2 Delivery O2 Flow Rate FiO2 01/26/17 20:46 01/26/17 20:28 89 18 85 18 82 18 01/26/17 19:50 97 01/26/17 18:17 98.7 Room Air Orders Orders Ct Cerv Spine W/O Contrast (01/26/17 ) Ct Brain W/O Iv Contrast(Rout) (01/26/17 ) Chest, Pa & Lat (01/26/17 ) Orthostatic Vital Signs (01/26/17 20:12) Ed Discharge Order (01/26/17 20:44) MDM Medical Decision Making Medical Screen Exam Complete: Yes Emergency Medical Condition: Yes Differential Diagnosis Whiplash, neck strain, neck sprain, muscle spasm Narrative Course 66-year-old male presents to emergency department after fall that occurred 2 days ago. Patient states that he does not remember how he fell and has had multiple episodes of this before. Patient came in today because he felt like he was having a anxiety attack. Currently patient does not know why he falls except he is known to have low blood pressure and recurrent atrial fibrillation despite an ablation previously. Patient follows primary care and cardiology and alledgedly not given him a definitive diagnosis as to why he falls or passes out. States he is due for another cardiac ablation March 02. Currently patient complains of left rib pain and neck pain. Says that she was in the hospital approximately 1 month ago and they told him he had a fractured neck and had similar pain in his left chest because of a rib fracture. States he has recurrent atrial fibrillation and is on Pradaxa. Vital signs stable. orthostatics- BP from sitting to standing significant for BP drop, HR remains within the 80s. Last Impressions Head CT 01/26/17 0000 Signed Impressions: Service Date/Time: Thursday, January 26, 2017 18:48 - CONCLUSION: Normal examination for a patient of this age. Christopher Hooker MD Chest X-Ray 01/26/17 0000 Signed Impressions: Service Date/Time: Thursday, January 26, 2017 19:01 - CONCLUSION: 1. No active disease. Christopher Hooker MD Cervical Spine CT 01/26/17 0000 Signed Impressions: Service Date/Time: Thursday, January 26, 2017 18:48 - CONCLUSION: 1. No acute findings. Moderate degenerative disc disease. Christopher Hooker MD No evidence of fracture as pt stated previously. Pt states he was out of pain medication to me but tells nurse that he was about 3-4 more pills left. Throughout his stay in the ER it appeared as though he was more concerned more for his neck pain. I offered a low dose of robaxin which he says has helped him before and advised to use EXTREME CAUTION, especially with his episodes of falling. I advised him to follow up with his PCP within 2-3 days and ONLY take the muscles relaxers in the evening at home. He appeared well and ambulated normally throughout the visit and is cleared for discharge. NO syncopal episodes while in the ED today. Advised to return for worsening or persistent symptoms. Pt has aurelio evaluated for this syncope prior with his outpatient specialists and should return for continuing tests and therapy. Diagnosis Primary Impression: Neck sprain Qualified Codes: S13.9XXA - Sprain of joints and ligaments of unspecified parts of neck, initial encounter Referrals: Primary Care Physician Additional Instructions: Follow-up with primary care physician within 2-3 days. Take medication as prescribed. Use extreme caution when taking medication as they may make you drowsy. If he symptoms persist or worsen return to the emergency department. Scripts Methocarbamol (Robaxin) 500 Mg Tab 500 MG PO TID for Muscle Spasm for 3 Days, TAB 0 Refills Take 1/2 to 1 tab up to 3 times daily for muscle spasms. Only use them while you are home. Prov: Ankit Diaz MD 01/26/17 Disposition: 01 DISCHARGE HOME Condition: Stable Abby Loredo Jan 26, 2017 20:12
[2017-01-26 20:28] VITALS: BP_SYST 120; BP_SYST 137; BP_SYST 141; BP_DIAS 85; BP_DIAS 91; BP_DIAS 96; RESP 18
[2017-01-26] MEDS ORDERED: ROBA500T PO (20:44)
== END 2017-01-26 21:17 | disposition home or self-care (01) ==
LOC: NEPD 18:15
DX: S13.9XXA Sprain of joints and ligaments of unspecified parts of neck, initial encounter (principal); R07.81 Pleurodynia; I48.91 Unspecified atrial fibrillation; I10 Essential (primary) hypertension; W19.XXXA Unspecified fall, initial encounter
CPT/HCPCS: 70450; 71020; 72125; 99285

== ENCOUNTER 2017-06-19 08:38 | Emergency (ER) | payer MEDICARE, MEDICAID ==
[~2017-06-19] VITALS: Ht 185.4 cm; Wt 82.0 kg
[~2017-06-19 08:38] MED LIST changes: +ROBA500T PO
[2017-06-19 08:49] VITALS: BP 99/64; PULSE 106; RESP 20; TEMP 97.3; O2SAT 97
--- NOTE | 2017-06-19 09:05 | PD ---
HPI Chief Complaint: Psychiatric Symptoms Time Seen by Provider: 08:56 Travel History International Travel<30 days: No Contact w/Intl Traveler<30days: No Traveled to known affect area: No History of Present Illness HPI This is a 66-year-old male who presents for evaluation. He reports that his public affairs specialist told him to come here for psychiatric evaluation. In addition he is complaining of alcoholism and alcohol withdrawal symptoms. He reports that he has been a heavy drinker for the past 5 months and he would like to quit drinking. He went to start [facility] today but they had no beds. He reports that his last drink was this morning and is currently having tremors as a alcohol withdrawal symptom. He denies any auditory or visual hallucination, illicit drug use, suicidal or homicidal ideation. He has no other acute medical complaints at this time. [facility] Past Medical History Arthritis: Yes Atrial Fibrillation: Yes Anxiety: Yes Depression: Yes Heart Rhythm Problems: Yes Cancer: No Cardiovascular Problems: Yes Cerebrovascular Accident: Yes Diminished Hearing: No Endocrine: No Gastrointestinal Disorders: Yes Genitourinary: No Hypertension: Yes Immune Disorder: No Musculoskeletal: Yes Neurologic: Yes Psychiatric: Yes Reproductive: No Respiratory: No Immunizations Current: Yes Past Surgical History Oral Surgery: Yes (tonsilectomy) Tonsillectomy: Yes Other Surgery: Yes (ABLATION 07/2016) Social History Alcohol Use: Yes (OCCASIONALLY) Tobacco Use: No Substance Use: No Allergies-Medications (Allergen,Severity, Reaction): Coded Allergies: gluten (Verified Allergy, Severe, 06/19/17) FACIAL SWELLING Reported Meds & Prescriptions Reported Meds & Active Scripts Active Amiodarone (Amiodarone HCl) 200 Mg Tab 200 Mg PO DAILY Reported Diltiazem CD 24 HR 240 Mg Caper 240 Mg PO DAILY Tizanidine (Tizanidine HCl) 4 Mg Cap 4 Mg PO DAILY Trihexyphenidyl (Trihexyphenidyl HCl) 2 Mg Tab 2 Mg PO BID Duloxetine DR (Duloxetine HCl) 60 Mg Capdr 60 Mg PO DAILY Citalopram (Citalopram Hydrobromide) 20 Mg Tab 20 Mg PO DAILY Gabapentin 300 Mg Cap 300 Mg PO QID Potassium 99 Mg Tablet 1 Tab PO DAILY Amlodipine (Amlodipine Besylate) 5 Mg Tab 5 Mg PO DAILY Primidone 50 Mg Tab 100 Mg PO QID Alprazolam 0.5 Mg Tab 0.5 Mg PO Q8H PRN Pradaxa (Dabigatran) 150 Mg Cap 150 Mg PO BID Review of Systems Except as stated in HPI: all other systems reviewed are Neg Physical Exam Narrative GENERAL: Well-developed well-nourished male in no acute distress vital signs reviewed SKIN: Warm and dry. HEAD: Atraumatic. Normocephalic. EYES: Pupils equal and round. No scleral icterus. No injection or drainage. ENT: No nasal bleeding or discharge. Mucous membranes pink and moist. NECK: Trachea midline. No JVD. CARDIOVASCULAR: Regular rate and rhythm. No murmur appreciated. RESPIRATORY: No accessory muscle use. Clear to auscultation. Breath sounds equal bilaterally. GASTROINTESTINAL: Abdomen soft, non-tender, nondistended. Hepatic and splenic margins not palpable. MUSCULOSKELETAL: No obvious deformities. NEUROLOGICAL: Awake and alert. No obvious cranial nerve deficits. Motor grossly within normal limits. Normal speech. Mildly tremulous. PSYCHIATRIC: Appropriate mood and affect; insight and judgment normal. Data Data Last Documented VS Vital Signs Date Time Temp Pulse Resp B/P (MAP) Pulse Ox O2 Delivery O2 Flow Rate FiO2 06/19/17 14:44 86 06/19/17 14:18 97.8 18 98 Room Air Orders Orders Complete Blood Count With Diff (06/19/17 08:56) Comprehensive Metabolic Panel (06/19/17 08:56) Thyroid Stimulating Hormone (06/19/17 08:56) Psych Screen (06/19/17 08:56) Drug Screen, Random Urine (06/19/17 08:56) Alcohol (Ethanol) (06/19/17 08:56) Alcohol Withdrawal Asmt-Ciwa ONCE (06/19/17 09:02) Flumazenil Inj (Romazicon Inj) (06/19/17 09:15) Lorazepam (Ativan) (06/19/17 09:15) Lorazepam Inj (Ativan Inj) (06/19/17 09:15) Lorazepam (Ativan) (06/19/17 09:15) Lorazepam Inj (Ativan Inj) (06/19/17 09:15) Lorazepam Inj (Ativan Inj) (06/19/17 09:15) Lorazepam Inj (Ativan Inj) (06/19/17 09:15) Ed Discharge Order (06/19/17 13:40) Diazepam (Valium) (06/19/17 13:45) Labs Laboratory Tests Test 06/19/17 09:30 06/19/17 11:50 White Blood Count 9.0 TH/MM3 Red Blood Count 4.08 MIL/MM3 Hemoglobin 13.8 GM/DL Hematocrit 40.3 % Mean Corpuscular Volume 98.8 FL Mean Corpuscular Hemoglobin 33.7 PG Mean Corpuscular Hemoglobin Concent 34.1 % Red Cell Distribution Width 16.3 % Platelet Count 192 TH/MM3 Mean Platelet Volume 7.0 FL Neutrophils (%) (Auto) 75.7 % Lymphocytes (%) (Auto) 10.3 % Monocytes (%) (Auto) 13.0 % Eosinophils (%) (Auto) 0.6 % Basophils (%) (Auto) 0.4 % Neutrophils # (Auto) 6.8 TH/MM3 Lymphocytes # (Auto) 0.9 TH/MM3 Monocytes # (Auto) 1.2 TH/MM3 Eosinophils # (Auto) 0.1 TH/MM3 Basophils # (Auto) 0.0 TH/MM3 CBC Comment DIFF FINAL Differential Comment Blood Urea Nitrogen 15 MG/DL Creatinine 0.98 MG/DL Random Glucose 89 MG/DL Total Protein 7.3 GM/DL Albumin 4.1 GM/DL Calcium Level 8.7 MG/DL Alkaline Phosphatase 74 U/L Aspartate Amino Transf (AST/SGOT) 50 U/L Alanine Aminotransferase (ALT/SGPT) 51 U/L Total Bilirubin 0.4 MG/DL Sodium Level 132 MEQ/L Potassium Level 4.2 MEQ/L Chloride Level 95 MEQ/L Carbon Dioxide Level 25.8 MEQ/L Anion Gap 11 MEQ/L Estimat Glomerular Filtration Rate 76 ML/MIN Thyroid Stimulating Hormone 3rd Gen 2.000 uIU/ML Ethyl Alcohol Level 52 MG/DL Urine Opiates Screen NEG Urine Barbiturates Screen NEG Urine Amphetamines Screen NEG Urine Benzodiazepines Screen POS Urine Cocaine Screen NEG Urine Cannabinoids Screen NEG MDM Medical Decision Making Medical Screen Exam Complete: Yes Emergency Medical Condition: Yes Medical Record Reviewed: Yes Differential Diagnosis Alcoholism, alcohol withdrawal, adjustment reaction, major depressive disorder, acute psychosis Narrative Course This is a 66-year-old male who reports that he was sent here for psychiatric evaluation and he is also requesting help with alcoholism alcohol withdrawal symptoms. He reports he has been a heavy drinker for 5 months and would like to quit drinking. He is currently mildly tremulous and his heart rate was 107 in triage. CIWA precautions have been initiated. Mental health screening discussed with the patient. Psychiatric screen ordered. Lab work is been reviewed. He is medically cleared for psychiatric disposition. Diagnosis Primary Impression: Alcoholism Demetris Lira June 19, 2017 09:05
[2017-06-19] MEDS ORDERED: LORazepam 1 MG TAB PO PRN (09:15)
[2017-06-19] MEDS ORDERED: LORazepam 2 MG/ML VIAL IV PUSH PRN ×4 (09:15)
[2017-06-19] MEDS ORDERED: LORazepam 2 MG TAB PO PRN (09:15)
[2017-06-19] MEDS ORDERED: FLUMAZENIL 0.5 MG/5 ML VIAL IV PUSH PRN (09:15)
[2017-06-19] MEDS ORDERED: DILT240C44 PO (09:21)
[2017-06-19] MEDS ORDERED: AMLO5TAB2 PO (09:21)
[2017-06-19] MEDS ORDERED: TIZA4CAP3 PO (09:21)
[2017-06-19] MEDS ORDERED: DULO1CAP3 PO (09:21)
[2017-06-19] MEDS ORDERED: TRIH2 PO (09:21)
[2017-06-19] MEDS ORDERED: POTA99TA4 PO (09:21)
[2017-06-19] MEDS ORDERED: CITA20TA4 PO (09:21)
[2017-06-19] MEDS ORDERED: GABA300C5 PO (09:21)
[2017-06-19 09:45] VITALS: BP 117/77; PULSE 91; RESP 18; O2SAT 99
[2017-06-19 09:50] LABS: AUTOMATED NEUTROPHIL # 6.8 TH/MM3 (1.8-7.7); BASOPHIL % 0.4 % (0.0-2.0); EOSINOPHIL # 0.1 TH/MM3 (0-0.4); EOSINOPHIL % 0.6 % (0.0-4.0); HEMATOCRIT 40.3 % (39.0-51.0); HEMOGLOBIN 13.8 GM/DL (13.0-17.0); LYMPH % 10.3 % (9.0-44.0); LYMPHOCYTE # 0.9 TH/MM3 (1.0-4.8); MEAN CELL VOLUME 98.8 FL (80.0-100.0); MEAN CORPUSCULAR HEMOGLOBIN 33.7 PG (27.0-34.0); MEAN CORPUSCULAR HGB CONC 34.1 % (32.0-36.0); MONOCYTE # 1.2 TH/MM3 (0-0.9); NEUT % 75.7 % (16.0-70.0); PLATELET COUNT 192 TH/MM3 (150-450); RED BLOOD COUNT 4.08 MIL/MM3 (4.50-5.90); RED CELL DISTRIBUTION WIDTH 16.3 % (11.6-17.2)
[2017-06-19 10:04] LABS: BLOOD UREA NITROGEN 15 MG/DL (7-18); CREATININE 0.98 MG/DL (0.60-1.30); GLOMERULAR FILTRATION RATE 76 ML/MIN (>89)
[2017-06-19 10:05] LABS: ALBUMIN 4.1 GM/DL (3.4-5.0); AST (GOT) 50 U/L (15-37); BICARBONATE 25.8 MEQ/L (21.0-32.0); CALCIUM 8.7 MG/DL (8.5-10.1); CHLORIDE 95 MEQ/L (98-107); GLUCOSE,RANDOM 89 MG/DL (74-106); SODIUM (NA) 132 MEQ/L (136-145)
[2017-06-19 10:15] LABS: ALKALINE PHOSPHATASE 74 U/L (45-117); ALT (GPT) 51 U/L (12-78); TOTAL BILIRUBIN ADULT 0.4 MG/DL (0.2-1.0); TOTAL PROTEIN 7.3 GM/DL (6.4-8.2)
[2017-06-19 11:00] VITALS: BP 126/60; PULSE 81; RESP 18; O2SAT 97
--- NOTE | 2017-06-19 13:40 | PD ---
Data Data Last Documented VS Vital Signs Date Time Temp Pulse Resp B/P (MAP) Pulse Ox O2 Delivery O2 Flow Rate FiO2 06/19/17 11:00 81 18 126/60 (82) 97 Room Air 06/19/17 08:49 97.3 Orders Orders Complete Blood Count With Diff (06/19/17 08:56) Comprehensive Metabolic Panel (06/19/17 08:56) Thyroid Stimulating Hormone (06/19/17 08:56) Psych Screen (06/19/17 08:56) Drug Screen, Random Urine (06/19/17 08:56) Alcohol (Ethanol) (06/19/17 08:56) Alcohol Withdrawal Asmt-Ciwa ONCE (06/19/17 09:02) Flumazenil Inj (Romazicon Inj) (06/19/17 09:15) Lorazepam (Ativan) (06/19/17 09:15) Lorazepam Inj (Ativan Inj) (06/19/17 09:15) Lorazepam (Ativan) (06/19/17 09:15) Lorazepam Inj (Ativan Inj) (06/19/17 09:15) Lorazepam Inj (Ativan Inj) (06/19/17 09:15) Lorazepam Inj (Ativan Inj) (06/19/17 09:15) Labs Laboratory Tests Test 06/19/17 09:30 06/19/17 11:50 White Blood Count 9.0 TH/MM3 Red Blood Count 4.08 MIL/MM3 Hemoglobin 13.8 GM/DL Hematocrit 40.3 % Mean Corpuscular Volume 98.8 FL Mean Corpuscular Hemoglobin 33.7 PG Mean Corpuscular Hemoglobin Concent 34.1 % Red Cell Distribution Width 16.3 % Platelet Count 192 TH/MM3 Mean Platelet Volume 7.0 FL Neutrophils (%) (Auto) 75.7 % Lymphocytes (%) (Auto) 10.3 % Monocytes (%) (Auto) 13.0 % Eosinophils (%) (Auto) 0.6 % Basophils (%) (Auto) 0.4 % Neutrophils # (Auto) 6.8 TH/MM3 Lymphocytes # (Auto) 0.9 TH/MM3 Monocytes # (Auto) 1.2 TH/MM3 Eosinophils # (Auto) 0.1 TH/MM3 Basophils # (Auto) 0.0 TH/MM3 CBC Comment DIFF FINAL Differential Comment Blood Urea Nitrogen 15 MG/DL Creatinine 0.98 MG/DL Random Glucose 89 MG/DL Total Protein 7.3 GM/DL Albumin 4.1 GM/DL Calcium Level 8.7 MG/DL Alkaline Phosphatase 74 U/L Aspartate Amino Transf (AST/SGOT) 50 U/L Alanine Aminotransferase (ALT/SGPT) 51 U/L Total Bilirubin 0.4 MG/DL Sodium Level 132 MEQ/L Potassium Level 4.2 MEQ/L Chloride Level 95 MEQ/L Carbon Dioxide Level 25.8 MEQ/L Anion Gap 11 MEQ/L Estimat Glomerular Filtration Rate 76 ML/MIN Thyroid Stimulating Hormone 3rd Gen 2.000 uIU/ML Ethyl Alcohol Level 52 MG/DL Urine Opiates Screen NEG Urine Barbiturates Screen NEG Urine Amphetamines Screen NEG Urine Benzodiazepines Screen POS Urine Cocaine Screen NEG Urine Cannabinoids Screen NEG MDM Medical Record Reviewed: Yes Supervised Visit with [facility]: Yes Narrative Course I, Dr. Campos, have reviewed the advance practice practitioner's documentation and am in agreement, met with the patient face to face, made the diagnosis, and the medical decision making was done by me. *My assessment and Findings: NO SI/HI. 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 Pt primarily here for help with alcoholism. Diagnosis Primary Impression: Alcoholism Referrals: [facility] for appointment Med/Other Pt SpecificInfo: No Change to Meds Disposition: 01 DISCHARGE HOME Condition: Stable Navi Campos MD June 19, 2017 13:40
[2017-06-19] MEDS ORDERED: DIAZEPAM 10 MG TAB PO ONE (13:45)
[2017-06-19 14:18] VITALS: BP 136/90; PULSE 105; RESP 18; TEMP 97.8; O2SAT 98
[2017-06-19 14:44] VITALS: PULSE 86
== END 2017-06-19 14:57 | disposition home or self-care (01) ==
LOC: NEPD 08:38 → NEPJ 14:57
DX: F10.20 Alcohol dependence, uncomplicated (principal); F19.10 Other psychoactive substance abuse, uncomplicated; M19.90 Unspecified osteoarthritis, unspecified site; I48.91 Unspecified atrial fibrillation; F41.9 Anxiety disorder, unspecified; F32.9 Major depressive disorder, single episode, unspecified; I10 Essential (primary) hypertension; Z79.899 Other long term (current) drug therapy; Z86.73 Personal history of transient ischemic attack (TIA), and cerebral infarction without residual deficits
CPT/HCPCS: 80053; 80307; 84443; 85025; 96374; 99284; J2060